=== PATIENT | female | born 1995 | race Caucasian/White ===

== ENCOUNTER → 2017-03-25 | Outpatient (CLI) | payer SELFPAY ==
[~2017-03-25] MED LIST: DEPO INJECTION
[2017-03-28 00:08] LABS: CHLAMYDIA TRACH RNA*** DETECTED (NOT DETECTED); GC (NEIS GONORRHOEAE)RNA** NOT DETECTED (NOT DETECTED)
== END | disposition home or self-care (01) ==
LOC: C.LABSPEC 13:45
PROVIDERS: ATTEND Physician Assistant
DX: Z30.430 Encounter for insertion of intrauterine contraceptive device (principal)

== ENCOUNTER → 2017-06-24 | Outpatient (CLI) | payer OTHER ==
[2017-06-25 14:06] LABS: CHLAMYDIA TRACH RNA*** NOT DETECTED (NOT DETECTED); GC (NEIS GONORRHOEAE)RNA** NOT DETECTED (NOT DETECTED)
== END | disposition home or self-care (01) ==
LOC: C.LABSPEC 11:21
PROVIDERS: ATTEND Physician Assistant
DX: A56.8 Sexually transmitted chlamydial infection of other sites (principal)

== ENCOUNTER 2017-08-15 20:07 | Emergency (ER) | payer OTHER ==
[~2017-08-15] VITALS: Ht 160 cm; Wt 68.2 kg
[2017-08-15 20:14] VITALS: TEMP 37; Ht 160 cm; Wt 68.2 kg
[2017-08-15] MEDS ORDERED: ACETAMINOPHEN 325 MG TAB PO STA (21:05)
--- NOTE | 2017-08-15 21:55 | DIAGNOSTIC IMAGING REPORT ---
CHEST 2 VIEWS ROUTINE HISTORY: cough eval for pna COMPARISON: Chest 06/24/2014. FINDINGS: The lungs are clear. Cardiac silhouette is normal in size. No pleural effusions. No pneumothorax. IMPRESSION: No acute process. Electronically signed by: Cy Fleming M.D. 08/15/2017 9:53 PM Dictated Date/Time: 08/15/2017 9:52 PM
[2017-08-15] MEDS ORDERED: BENZ100C84 PO (22:14)
[2017-08-15] MEDS ORDERED: BENZONATATE 100MG CAP PO ONE (22:15)
[2017-08-15 22:25] VITALS: BP 139/76; PULSE 109; O2SAT 98
[2017-08-15] MEDS ORDERED: IUD'IUD INT UTER (22:26)
[2017-08-15 23:02] LABS: INFLUENZA B ANTIGEN Neg for Influ B (NEG)
--- NOTE | 2017-08-16 00:06 | EMERGENCY ROOM VISIT NOTE ---
History Report prepared by Hal: Darcy Lin Under the Supervision of: Dr. Mateusz Mcnamara M.D. First contact with patient: 20:59 Chief Complaint: FLU LIKE SX Stated Complaint: FLU LIKE History of Present Illness The patient is a 22 year old female who presents to the Emergency Room with complaints of persistent flu symptoms starting last night. The patient reports a dry cough, headache, and body aches. She last took Tylenol at 1200 for her symptoms. She denies any congestion, vomiting, abdominal pain, or diarrhea. She did not have a flu shot this season. Her daughter recently had the flu. She denies any chance of . She notes she had hypertension after having her daughter. She sees cardiology once a year and they do not seem concerned about her hypertension. She denies any other medical problems. Source of History: patient Onset: last night Position: other (global) Quality: other (flu symptoms) Timing: other (persistent) Associated Symptoms: + headache, + cough, No chest pain, No vomiting, No abdominal pain, No diarrhea Note: Pt reports body aches. Pt denies congestion. Review of Systems See HPI for pertinent positives & negatives. A total of 10 systems reviewed and were otherwise negative. Past Medical & Surgical Medical Problems: (1) adolescent (2) Chest pain (3) Hypertension Nos (4) Sinusitis, acute (5) Vaginal delivery Surgical Problems: (1) S/P tonsillectomy and adenoidectomy Family History Diabetes mellitus Heart disease Hypertension Social History Smoking Status: Never Smoker Alcohol Use: none Drug Use: none Marital Status: single Housing Status: lives with family Occupation Status: unemployed Current/Historical Medications Scheduled Iud's (Paragard Intrauterine Rivet Flunky), 1 EA INT UTER UD Scheduled PRN Benzonatate (Tessalon Perles), 100 MG PO Q8 PRN for Cough Allergies Coded Allergies: CI Pigment Blue 63 (Verified Allergy, Unknown, SWELLING/HIVES, 04/21/15) Oseltamivir (Verified Allergy, Unknown, SWELLING/HIVES, 04/21/15) Physical Exam Vital Signs Date Time Temp Pulse Resp B/P (MAP) Pulse Ox O2 Delivery O2 Flow Rate FiO2 08/15/17 22:25 109 16 139/76 98 Room Air 08/15/17 20:14 37.0 108 20 136/72 98 Room Air Physical Exam Constitutional: Vital signs reviewed. Eyes: Pupils are equal round reactive to light. Conjunctiva are noninjected. ENT: Pharynx is clear without erythema or exudate. Mucous membranes are moist. Neck supple without meningeal signs. Respiratory: Clear to auscultation bilaterally. Breath sounds are equal bilaterally. Cardiovascular: Regular rate and rhythm. No rubs or gallops. GI: Soft, nondistended and nontender. Bowel sounds are present. Musculoskeletal: No peripheral edema. No lower extremity tenderness. Integumentary: No cyanosis. Neurological: The patient is awake and alert. No focal deficits. Psychiatric: Normal affect. Medical Decision & Procedures ER Provider Diagnostic Interpretation: X-ray results as stated below per interpretation by me and the radiologist: CHEST 2 VIEWS ROUTINE HISTORY: cough eval for pna COMPARISON: Chest 06/24/2014. FINDINGS: The lungs are clear. Cardiac silhouette is normal in size. No pleural effusions. No pneumothorax. IMPRESSION: No acute process. Electronically signed by: Cy Fleming M.D. 08/15/2017 9:53 PM Dictated Date/Time: 08/15/2017 9:52 PM Laboratory Results Test 08/15/17 21:05 08/15/17 22:15 Influenza Type A Antigen Neg for Influ A (NEG) Influenza Type B Antigen Neg for Influ B (NEG) Laboratory results as reviewed by me. Medications Administered Medications (Trade) Dose Ordered Sig/Dwayne Route Start Time Stop Time Status Last Admin Dose Admin Acetaminophen (Tylenol Tab) 650 mg NOW STAT PO 08/15/17 21:05 08/15/17 21:07 DC 08/15/17 21:24 650 MG Benzonatate (Tessalon Perles Cap) 100 mg NOW ONCE PO 08/15/17 22:15 08/15/17 22:16 DC 08/15/17 22:23 100 MG ED Course 2100: The patient was evaluated in room C2B. A complete history and physical exam was performed. 2105: Acetaminophen 650 mg PO. 2211: Upon reevaluation, the patient was resting comfortably. I discussed tonight's findings with her. She verbalized agreement of the treatment plan. She was discharged home. 2215: Benzonatate 100 mg PO. Medical Decision This is a 22-year-old female presents with flulike symptoms. Differential diagnosis includes influenza, bronchitis, pneumonia, viral syndrome. I did perform a limited focused review of portions of the patient's old chart on the electronic medical record. The patient has had no recent pertinent visits to this hospital. I did evaluate the patient as noted above. Urine presents to test was negative. The patient was treated with Tylenol. I did order and personally review the patient's chest x-ray as described above. There is no evidence of pneumonia. I did obtain a rapid flu test which was negative. I did discuss the test results with the patient. She was treated with Tessalon for her cough and discharged with a prescription for Tessalon Perles. She was advised follow up with her doctor. Medication Reconcilliation Current Medication List: was personally reviewed by me Blood Pressure Screening Patient's blood pressure: Elevated blood pressure Blood pressure disposition: Referred to PCP Impression Primary Impression: Influenza-like symptoms Scribe Attestation The scribe's documentation has been prepared under my direct and personally reviewed by me in its entirety. I confirm that the note above accurately reflects all work, treatment, procedures, and medical decision making performed by me. Departure Information Dispostion Home / Self-Care Prescriptions Benzonatate (Tessalon Perles) 100 Mg Cap 100 MG PO Q8 Y for Cough, #20 CAP Prov: Mateusz Mcnamara M.D. 08/15/17 Referrals Mariza Javed, C.R.N.P. (PCP) Forms HOME CARE DOCUMENTATION FORM, IMPORTANT VISIT INFORMATION Patient Instructions My [facility] Additional Instructions You have been examined and treated today on an emergency basis only. This is not a substitute for, or an effort to provide, complete comprehensive medical care. It is impossible to recognize and treat all injuries or illnesses in a single emergency department visit. It is therefore important that you follow up closely with your physician. Call as soon as possible for an appointment. Return for worsening symptoms or if you develop high fever, vomiting, shortness of breath or any other concerning symptoms.
== END 2017-08-15 22:29 | disposition home or self-care (01) ==
LOC: C.EDB 20:07 → C.EDC 22:29
DX: R05 Cough (principal); R51 Headache; I10 Essential (primary) hypertension; Z97.5 Presence of (intrauterine) contraceptive device; Z83.3 Family history of diabetes mellitus; Z82.49 Family history of ischemic heart disease and other diseases of the circulatory system

== ENCOUNTER → 2017-08-19 | Outpatient (CLI) | payer OTHER ==
[~2017-08-19] MED LIST changes: +BENZ100C84 PO; -DEPO INJECTION; +IUD'IUD INT UTER
== END | disposition home or self-care (01) ==
LOC: C.LABSPEC 12:55
PROVIDERS: ATTEND Nurse Practitioner
DX: J02.9 Acute pharyngitis, unspecified (principal)

== ENCOUNTER → 2017-12-09 | Outpatient (CLI) | payer OTHER | END | disposition home or self-care (01) | LOC: C.LAB1850 13:40 | PROVIDERS: ATTEND Nurse Practitioner | DX: A56.8 Sexually transmitted chlamydial infection of other sites (principal); R10.2 Pelvic and perineal pain ==

== ENCOUNTER 2018-02-27 21:47 | Emergency (ER) | payer OTHER ==
[~2018-02-27] VITALS: Ht 157.5 cm; Wt 68.2 kg
[~2018-02-27 21:47] MED LIST changes: -BENZ100C84 PO
[2018-02-27 21:54] VITALS: Ht 157.5 cm; Wt 68.2 kg
[2018-02-27] MEDS ORDERED: OXYCODONE/ACETAMINOPHEN 5-325 TAB PO STA (22:10)
[2018-02-27] MEDS ORDERED: IBUPROFEN 600 MG TAB PO STA (22:10)
[2018-02-27] MEDS ORDERED: OXYC-57 PO (22:13)
[2018-02-27] MEDS ORDERED: PERCOCET HOME PACK PO ONE (22:15)
[2018-02-27 22:38] VITALS: BP 136/84; PULSE 87; TEMP 36.8; O2SAT 98
--- NOTE | 2018-02-28 00:45 | EMERGENCY ROOM VISIT NOTE ---
History Report prepared by Anjelicaibkareen: Karina Schumacher Under the Supervision of: Dr. New Mckeon M.D. First contact with patient: 22:03 Chief Complaint: FINGER PAIN Stated Complaint: RIGHT MIDDLE FINGER History of Present Illness The patient is a 22 year old female who presents to the Emergency Room with complaints of worsening right finger pain that onset this morning. 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 She notes that he pain started in her finger, moved up into her hand, and is currently up to her wrist. She states that her pain is exacerbated with movement. She complains of numbness in her hand. Source of History: patient, custodial notes Onset: this morning Position: finger(s) (right) Timing: worsening Modifying Factors (Worsening): movement Associated Symptoms: + numbness Review of Systems See HPI for pertinent positives & negatives. A total of 10 systems reviewed and were otherwise negative. Past Medical & Surgical Medical Problems: (1) adolescent (2) Chest pain (3) Hypertension Nos (4) Sinusitis, acute (5) Vaginal delivery Surgical Problems: (1) S/P tonsillectomy and adenoidectomy Family History Diabetes mellitus Heart disease Hypertension Social History Smoking Status: Never Smoker Alcohol Use: none Drug Use: none Marital Status: single Housing Status: lives with family Occupation Status: unemployed Current/Historical Medications Scheduled Iud's (Paragard Intrauterine English Language Arts Teacher), 1 EA INT UTER UD Scheduled PRN Oxycodone/Acetaminophen 5MG/325MG (Percocet 5MG/325MG), 1-2 TAB PO Q4H PRN for Pain Allergies Coded Allergies: CI Pigment Blue 63 (Verified Allergy, Unknown, SWELLING/HIVES, 04/21/15) Oseltamivir (Verified Allergy, Unknown, SWELLING/HIVES, 04/21/15) Physical Exam Vital Signs Date Time Temp Pulse Resp B/P (MAP) Pulse Ox O2 Delivery O2 Flow Rate FiO2 02/27/18 22:38 36.8 87 18 136/84 98 02/27/18 21:54 36.8 87 18 136/84 98 Room Air Physical Exam GENERAL: Awake, alert, well-appearing, in no acute distress HENT: Normocephalic, atraumatic. Oropharynx unremarkable. EYES: Normal conjunctiva. Sclera non-icteric. NECK: Supple. No nuchal rigidity. FROM. No JVD. RESPIRATORY: Clear to auscultation. CARDIAC: Regular rate, normal rhythm. Extremities warm and well perfused. Pulses equal. ABDOMEN: Soft, non-distended. No tenderness to palpation. No rebound or guarding. No masses. RECTAL: Deferred. MUSCULOSKELETAL: Chest examination reveals no tenderness. The back is symmetrical on inspection without obvious abnormality. There is no CVA tenderness to palpation. No joint edema. UPPER EXTREMITIES: Positive Tinel and Phalen signs. LOWER EXTREMITIES: Calves are equal size bilaterally and non-tender. No edema. No discoloration. NEURO: Normal sensorium. No sensory or motor deficits noted. SKIN: No rash or jaundice noted. Medical Decision & Procedures Medications Administered Medications (Trade) Dose Ordered Sig/Dwayne Route Start Time Stop Time Status Last Admin Dose Admin Ibuprofen (Motrin Tab) 600 mg NOW STAT PO 02/27/18 22:10 02/27/18 22:12 DC 02/27/18 22:18 600 MG Oxycodone/ Acetaminophen (Percocet 5/ 325MG Home Pack) 1 homepack UD ONCE PO 02/27/18 22:15 02/27/18 22:16 DC 02/27/18 22:19 1 HOMEPACK Oxycodone/ Acetaminophen (Percocet 5-325mg Tab) 2 tab NOW STAT PO 02/27/18 22:10 02/27/18 22:12 DC 02/27/18 22:19 2 TAB Procedure This is a 22-year-old female who presents emergency department complaining of hand numbness after being at work. 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 The hand numbness and pain is made worse with both Tinel and Phalen's tests. Based on this physical exam finding I do believe that the patient is suffering from carpal tunnel syndrome. I strongly recommended anti-inflammatory such as ibuprofen as well as a cock-up splint. I also recommended that the patient follow-up with orthopedics. She was given Percocet for the pain. Patient was in agreement with the treatment plan. ED Course 2214: Past medical records reviewed. The patient was evaluated in room B11. A complete history and physical examination was performed. 2219: Upon reexamination the patient is resting comfortably. I discussed results and treatment plan with the patient. She verbalizes agreement and understanding. The patient is ready for discharge. Medical Decision Differential diagnosis: Etiologies carpal tunnel syndrome as well as others were entertained. Medication Reconcilliation Current Medication List: was personally reviewed by me Blood Pressure Screening Patient's blood pressure: Normal blood pressure Impression Primary Impression: Carpal tunnel syndrome Scribe Attestation The scribe's documentation has been prepared under my direction and personally reviewed by me in its entirety. I confirm that the note above accurately reflects all work, treatment, procedures, and medical decision making performed by me. Departure Information Dispostion Home / Self-Care Prescriptions Oxycodone/Acetaminophen 5MG/325MG (PERCOCET 5MG/325MG) Tab 1-2 TAB PO Q4H Y for Pain, #14 TAB Prov: New Mckeon MD 02/27/18 Referrals Mariza Javed C.R.N.P. (PCP) Forms HOME CARE DOCUMENTATION FORM, IMPORTANT VISIT INFORMATION, WORK / SCHOOL INSTRUCTIONS Patient Instructions My [facility] Additional Instructions Follow up with Dr Mason's office You received narcotic or benzodiazepene medication while in the emergency room today. This is an addictive medication that may cause drowziness as well as constipation. Do not drive, operate heavy machinery, or drink alcohol under the influence of this medication. Take 600 mg Ibuprofen every 6 hours Take Percocet for breakthrough pain You have been examined and treated today on an emergency basis only. This is not a substitute for, or an effort to provide, complete comprehensive medical care. It is impossible to recognize and treat all injuries or illnesses in a single emergency department visit. It is therefore important that you follow up closely with your PCP. Call as soon as possible for an appointment. Thank you for your time and consideration. I look forward to speaking with you again soon. Please don't hesitate to call us if you have any questions. Problem Qualifiers Primary Impression: Carpal tunnel syndrome Laterality: right Qualified Codes: G56.01 - Carpal tunnel syndrome, right upper limb
== END 2018-02-27 22:38 | disposition home or self-care (01) ==
LOC: C.EDB 21:49
DX: G56.01 Carpal tunnel syndrome, right upper limb (principal); Z97.5 Presence of (intrauterine) contraceptive device; Z91.02 Food additives allergy status; Z88.8 Allergy status to other drugs, medicaments and biological substances

== ENCOUNTER → 2018-03-03 | Outpatient (CLI) | payer OTHER ==
[~2018-03-03] MED LIST changes: +OXYC-57 PO
== END | disposition home or self-care (01) ==
LOC: C.RDSM 10:25
PROVIDERS: ATTEND Family Medicine Sports Medicine
DX: M25.532 Pain in left wrist (principal)

== ENCOUNTER 2018-03-08 22:59 | Emergency (ER) | payer OTHER ==
[~2018-03-08] VITALS: Ht 157.5 cm; Wt 68.2 kg
[2018-03-08 23:03] VITALS: Ht 157.5 cm; Wt 68.2 kg
[2018-03-08] MEDS ORDERED: KETOROLAC TROMETHAMINE 60 MG/2 ML VIAL IM STA (23:21)
--- NOTE | 2018-03-08 23:41 | EMERGENCY ROOM VISIT NOTE ---
History Report prepared by Hal: John Seaman Under the Supervision of: Dr. Janene Carrasquillo D.O. First contact with patient: 23:10 Chief Complaint: WRIST PAIN Stated Complaint: RIGHT WRIST PAIN History of Present Illness The patient is a 22 year old female who presents to the Emergency Room with complaints of constant right wrist pain beginning three weeks ago. The patient states that she came to the emergency department two weeks ago for right wrist pain and was diagnosed with carpel tunnel. She notes that she went to an orthopedist and was told that she did not have carpel tunnel. She reports that she was then referred to physical therapy. The patient states that she started going to physical therapy two days ago. She notes that her physical therapist thought that she had tendonitis instead of carpel tunnel. 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 The patient states that she then puts the brace back on when her pain worsens. She also complains of right hand numbness/ pain, finger stiffness, and occasional forearm pain. She rates her pain as an 8/ 10. She denies any right elbow pain, right shoulder pain, and chance of . She notes that she has been alternating Tylenol and ibuprofen for the last few days with no relief of her symptoms. She reports that she last took Tylenol at 1800 today. Source of History: patient Onset: three weeks ago Position: other (right wrist) Symptom Intensity: 8/10 Timing: constant Note: The patient also complains of right hand numbness/pain, finger stiffness, and occasional forearm pain. She denies any right elbow pain and right shoulder pain. Review of Systems See HPI for pertinent positives & negatives. A total of 6 systems reviewed and were otherwise negative. Past Medical & Surgical Medical Problems: (1) adolescent (2) Chest pain (3) Hypertension Nos (4) Sinusitis, acute (5) Vaginal delivery Surgical Problems: (1) H/O wisdom tooth extraction (2) S/P tonsillectomy and adenoidectomy Family History Diabetes mellitus Heart disease Hypertension Social History Smoking Status: Never Smoker Alcohol Use: none Drug Use: none Marital Status: single Housing Status: lives with family Occupation Status: employed Current/Historical Medications Scheduled Iud's (Paragard Intrauterine Helicopter Utility Aircrewman), 1 EA INT UTER UD Scheduled PRN Oxycodone/Acetaminophen 5MG/325MG (Percocet 5MG/325MG), 1-2 TAB PO Q4H PRN for Pain Allergies Coded Allergies: CI Pigment Blue 63 (Verified Allergy, Unknown, SWELLING/HIVES, 04/21/15) Oseltamivir (Verified Allergy, Unknown, SWELLING/HIVES, 04/21/15) Physical Exam Vital Signs Date Time Temp Pulse Resp B/P (MAP) Pulse Ox O2 Delivery O2 Flow Rate FiO2 03/08/18 23:45 82 20 127/84 99 03/08/18 23:03 36.5 85 18 133/90 98 Room Air Physical Exam RIGHT WRIST: Moderate pain with pronation and supination that radiates into ventral forearm, pain with palpation over ventral and dorsal aspect of the hand , pain with flexion and extension of wrist, no obvious edema, good radial pulses , good capillary refill in the fingers. Medical Decision & Procedures Medications Administered Medications (Trade) Dose Ordered Sig/Dwayne Route Start Time Stop Time Status Last Admin Dose Admin Ketorolac Tromethamine (Toradol Inj) 60 mg NOW STAT IM 03/08/18 23:21 03/08/18 23:22 DC 03/08/18 23:45 60 MG Procedure Medications Administered: Toradol Inj 60mg IM ED Course 2315: Past medical records reviewed. The patient was evaluated in room C10. A focused history and physical exam was performed. 2321: Toradol Inj 60mg IM 2338: The patient will be discharged home with a prescription for prednisone for the next 4 days. I have encouraged her to follow-up with her occupational medicine doctor from the [facility]. Medical Decision The patient is a 22 year old female who presents to the Emergency Room with complaints of constant right wrist pain beginning three weeks ago. Differential diagnoses include: tendonitis, carpel tunnel, wrist sprain, wrist strain, and septic joint. The patient's physical exam seems consistent with tendinitis of the wrist. I encouraged the patient to continue to use her wrist brace and avoid strenuous activity with that right upper extremity. She was given a prescription for a 4 day burst of prednisone. She can follow-up with occupational medicine as described above. They can decide on her work restrictions and pursuing physical therapy. Medication Reconcilliation Current Medication List: was personally reviewed by me Blood Pressure Screening Patient's blood pressure: Elevated blood pressure Blood pressure disposition: Elevated BP felt to be situational Impression Primary Impression: Tendonitis of wrist, right Scribe Attestation The scribe's documentation has been prepared under my direction and personally reviewed by me in its entirety. I confirm that the note above accurately reflects all work, treatment, procedures, and medical decision making performed by me. Departure Information Dispostion Home / Self-Care Referrals No Doctor, Assigned (PCP) Forms HOME CARE DOCUMENTATION FORM, IMPORTANT VISIT INFORMATION, WORK / SCHOOL INSTRUCTIONS Patient Instructions My [facility] Additional Instructions Rest the right wrist. You may continue to apply ice Motrin - 600mg every 6 hours with food for pain Prednisone - daily for next 4 days Wear brace while awake and using hands Follow up with employee health through [facility] to determine restrictions at work
[2018-03-08 23:45] VITALS: BP 127/84; PULSE 82; O2SAT 99
== END 2018-03-08 23:47 | disposition home or self-care (01) ==
LOC: C.EDB 23:01 → C.EDC 23:47
DX: M77.8 Other enthesopathies, not elsewhere classified (principal); I10 Essential (primary) hypertension; Z97.5 Presence of (intrauterine) contraceptive device

== ENCOUNTER 2025-04-03 18:55 | Inpatient (IN) ==
[2025-04-03] MEDS ORDERED: CALCIUM CARBONATE 500 MG CHEWABLE TAB PO PRN ×2 (19:27→20:19)
[2025-04-03] MEDS: FAMOTIDINE 20 MG TAB PO SCH (19:56)
[2025-04-03] MEDS ORDERED: LIDOCAINE 1% LOCAL 20 ML VIAL INFIL PRN (20:19)
[2025-04-03] MEDS ORDERED: ACETAMINOPHEN 500 MG TAB PO PRN (20:19)
[2025-04-03] MEDS ORDERED: OXYTOCIN 30 UNITS/NSS 30 UNITS/500 ML BAG IV PRN (20:19)
--- NOTE | 2025-04-03 21:10 | History & Physical Report ---
Date of Service April 03, 2025 Assessment & Plan (1) Severe pre-eclampsia in third trimester: Plan: Yanet is a 29-year-old -1-0-1 at 37 weeks 0 days gestational age presents with severe preeclampsia/severe gestational hypertension. Has severe range blood pressures as noted per chart. Discussed diagnosis and recommendation for magnesium. Discussed blood pressure management and ordered labetalol 20 mg IV as a single dose. Will continue to monitor and treat appropriately. Discussed induction of labor and cervix is favorable. Will start with oxytocin per regular protocol. 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 Denying any preeclampsia symptoms. Denying any contractions, leakage of fluid or vaginal bleeding. Allergies Allergy/AdvReac Type Severity Reaction Status Date / Time oseltamivir Allergy Unknown SWELLING/HI Verified 04/01/25 13:49 VES Home Medications Medication Instructions Recorded Confirmed Type ondansetron 4 mg disintegrating 4 mg PO Q6H PRN nausea and 10/16/24 04/01/25 Rx tablet vomiting #12 tabs vit no.95-ferrous 1 tab PO DAILY 10/16/24 04/01/25 History fumarate 28 mg-folic acid 800 mcg tablet () Patient History Medical History Osteochondritis dissecans Chronic mixed headache syndrome Surgical History History of myringotomy History of knee surgery Rt knee scope x 3 History of tonsillectomy and adenoidectomy Status post wisdom tooth extraction Family History Grandmother Diabetes Grandmother COPD (chronic obstructive pulmonary disease) Migraine headache Grandmother (Maternal) Hypertension Heart disease Other No family history of adverse response to anesthesia No family history of bleeding disorder Denies family history of Ovarian cancer Prostate cancer Myocardial infarction Breast cancer Colorectal cancer Uterine cancer Social History Smoking Status: Never smoker Second Hand Exposure: No; Do You Dip or Chew Tobacco: No; Tobacco Cessation Education Requested by Patient: No Hx Alcohol Use: Yes Alcohol Intake Frequency: Monthly or Less Hx Substance Use: No Preferred Language: Latvian Communication Ability: Effective Hearing Ability: Normal Fitness/Wellness Director Required: No Beliefs That Will Affect Care: None marital status: marital status details: Rosas [phone] Current Living Situation: Spouse and Family Current Living Situation Comment: , daughter and step kids current occupational status: employed current occupation: [employer] Other Information That Helps Us Care for You: No Feels Safe at Home: Yes Safety Concerns: Feels Safe At This Time Childhood Exposure to Second-Hand Smoke: Yes Dental Care, Regularly: Yes Seatbelt Use: always Assistive Devices: None Physical Exam Genitourinary: normal external appearance OB Exam Abdomen: + vertex Manual OB Exam: + cervical dilation (1.5), + cervical effacement 70% and + station -2 OB Exam Monitor Tracing: + external FHT monitor used, + external uterine monitor used, + category I and + normal FHT variability Results & Data Vital Signs (Past 12 Hours) Vital Signs Temp Pulse Resp BP 04/03/25 20:38 93 H 172/92 H 04/03/25 20:19 96 H 166/98 H 04/03/25 20:09 90 164/92 H 04/03/25 19:54 85 163/92 H 04/03/25 19:36 88 161/103 H 04/03/25 19:35 86 158/95 H 04/03/25 19:33 36.7 C 18 04/03/25 19:15 36.7 C 82 18 142/92 H Code Status & VTE Plan VTE Prophylaxis Plan VTE Prophylaxis will be ordered: No Coding Level of Care Code None Diagnoses Severe pre-eclampsia in third trimester O14.13 GBS carrier Z22.330 Supervision of normal intrauterine in multigravida in third trimester Z34.83 Trimester: third trimester History of premature rupture of membranes (PROM) in previous , currently in third trimester O09.293 Trimester: third trimester (3) Supervision of normal intrauterine in multigravida Trimester: third trimester Qualified Code(s): Z34.83 - Encounter for supervision of other normal , third trimester (4) Prior PROM, antepartum Trimester: third trimester Qualified Code(s): O09.293 - Supervision of with other poor reproductive or obstetric history, third trimester
[2025-04-03 21:21] LABS: Hematocrit (blood only) 42.7 % (37.0-47.0); Hemoglobin 14.3 g/dl (12.0-16.0); Mean Corpuscular Hemoglobin 28.5 pg (25.0-34.0); Mean Corpuscular Volume 85.2 fL (80.0-100.0); Platelet Count 239 K/uL (130-400); RDW Standard Deviation 39.0 fL (36.4-46.3); Red Blood Count 5.01 M/uL (4.20-5.40); White Blood Count 12.22 K/ul (4.8-10.8)
[2025-04-03] MEDS: LABETALOL HCL IV 5 MG/ML 20ML IV STA (21:25)
[2025-04-03] MEDS: MAG SULFATE 4GM BOLUS FROM BAG IV ONE (21:30)
[2025-04-03] MEDS: MAGNESIUM SULFATE / WTR 40 GM/1,000 ML BAG IV SCH (21:30)
[2025-04-03] MEDS: LACTATED RINGER'S 1,000 ML IV PRN (21:31)
[2025-04-03 21:35] LABS: Alanine Aminotransferase 16.0 U/L (7-52); Creatinine Clr Calc Pharmacy 133.9 ml/min
[2025-04-03] MEDS: OXYTOCIN 30 UNITS/NSS 30 UNITS/500 ML BAG IV PRN (21:36)
[2025-04-03] MEDS: PENICILLIN GK 6 MU in DEXTROSE 5% 250 ML IV ONE (21:37)
[2025-04-03 21:46] LABS: Total Protein Urine Random < 4.0 mg/dl (0-11.9)
[2025-04-04] MEDS: PENICILLIN GK 3 MU in DEXTROSE 5% 100 ML IV PRN (01:55)
--- NOTE | 2025-04-04 07:36 | Delivery Summary ---
Vaginal Delivery Summary Date of Service April 04, 2025 Vaginal Delivery Summary Patient delivered precipitously with involuntary pushing prior to being notified. Upon presentation was delivered and noted to be vigorous on maternal abdomen. Had been approximately 1 minute and the cord was doubly clamped and cut and remained on maternal abdomen. Cord blood obtained and attention turned to delivery of the placenta which delivered intact three- vessel cord gentle cord traction. Inspection of perineum, vagina and cervix there is noted to be no lacerations. Sponge and instrument counts correct at the completion of the case. Both mother and stable immediate postdelivery timeframe. No complications noted and blood loss per QBL. Continue with mag [facility] Vaginal Delivery Charge Delivery Type Details:
[2025-04-04] MEDS ORDERED: HYDROCORTISONE ACETATE 25 MG SUPP PR PRN (19:00)
[2025-04-04] MEDS ORDERED: BENZOCAINE 20% SPRY 85 APPLN/85 GM CAN EXT PRN (19:00)
[2025-04-04] MEDS ORDERED: OXYTOCIN 30 UNITS/NSS 30 UNITS/500 ML BAG IV PRN (19:00)
[2025-04-04] MEDS: DOCUSATE SODIUM 100 MG CAP PO SCH (20:45)
[2025-04-04] MEDS: IBUPROFEN 600 MG TAB PO PRN (21:03)
[2025-04-04] MEDS: ACETAMINOPHEN 325 MG TAB PO PRN (21:29)
--- NOTE | 2025-04-05 05:58 | Obstetrical Progress Note ---
Date of Service April 05, 2025 Assessment & Plan (1) examination following vaginal delivery: (2) Severe pre-eclampsia in third trimester: (3) Prior PROM, antepartum: Plan 29 y/o post- day 1 s/p whose was complicated by severe pre-eclampsia Feels well today. Vital signs stable Continue post- care Encourage ambulation and Pain controlled with ibuprofen Hgb stable Discharge home today, follow up with Dr. Ch in 6 weeks. Admission and Anticipated Discharge Date Admission Date: April 03, 2025 Supervising Physician Co-Signing Physician Notes Resident Physician Supervision Note: I interviewed and examined the patient. Discussed with Dr. Rahman and agree with findings and plan as documented in the note. Any exceptions or clarifications are listed here: [ ] Documented By: Rebecca Payne MD, FACOG Subjective 29 y/o post- day 1 s/p whose was complicated by severe pre-eclampsia Ambulation: ambulating normally Voiding: no voiding problems Passing Gas:: Yes Diet Tolerance:: regular diet Lochia:: reporting heavy "gushes" when standing/moving abdominal muscles Feeding Type:: bottle feeding Current Pain Level: minimal Resting comfortably this AM in NAD. Denies JIN, CP, SOB, N/V/D, LE pain/swelling. Physical Exam Physical Exam: General: patient resting comfortably, NAD, non-toxic in appearance, AA&O x 4, answers questions appropriately. Skin: warm, dry, intact HEENT: NC/AT, anicteric sclera, conjunctiva without injection, moist mucus membranes. Heart: +S1/S2, regular, no m/r/g Lungs: equal air entry bilaterally, no rales/rhonchi/wheezes Abd: +BS, soft, NT/ND, uterine fundus firm below umbilicus Ext: warm, no clubbing/cyanosis or edema, Mayur's neg. Neuro: nonfocal, patient AA&O x 4, speech intact, no facial droop, moving all extremities on command. Results & Data Vital Signs (Past 12 Hours) Vital Signs Temp Pulse Pulse Resp BP BP Pulse Ox 04/05/25 04:00 36.6 C 79 16 109/73 98 04/05/25 00:15 36.4 C L 78 16 112/73 98 04/04/25 20:50 36.4 C L 84 18 131/92 97 04/04/25 19:05 36.6 C 16 04/04/25 19:00 16 04/04/25 19:00 04/04/25 19:00 103 H 136/85 04/04/25 18:57 98 H 97 04/04/25 18:52 104 H 97 04/04/25 18:47 95 H 96 04/04/25 18:42 103 H 97 04/04/25 18:37 99 H 98 04/04/25 18:32 100 H 97 04/04/25 18:27 104 H 97 04/04/25 18:22 101 H 97 04/04/25 18:17 100 H 98 04/04/25 18:12 101 H 98 04/04/25 18:07 99 H 134/85 97 04/04/25 18:02 107 H 98 04/04/25 17:59 20 04/04/25 17:57 99 H 98 O2 Del Method 04/05/25 04:00 Room Air 04/05/25 00:15 Room Air 04/04/25 20:50 Room Air 04/04/25 19:05 04/04/25 19:00 04/04/25 19:00 Room Air 04/04/25 19:00 04/04/25 18:57 04/04/25 18:52 04/04/25 18:47 04/04/25 18:42 04/04/25 18:37 04/04/25 18:32 04/04/25 18:27 04/04/25 18:22 04/04/25 18:17 04/04/25 18:12 04/04/25 18:07 04/04/25 18:02 04/04/25 17:59 04/04/25 17:57 (3) Prior PROM, antepartum Trimester: third trimester Qualified Code(s): O09.293 - Supervision of with other poor reproductive or obstetric history, third trimester
[2025-04-05 06:19] LABS: Hematocrit (blood only) 38.1 % (37.0-47.0); Hemoglobin 13.0 g/dl (12.0-16.0); Mean Corpuscular Hemoglobin 29.7 pg (25.0-34.0); Mean Corpuscular Volume 87.0 fL (80.0-100.0); Platelet Count 217 K/uL (130-400); RDW Standard Deviation 41.1 fL (36.4-46.3); Red Blood Count 4.38 M/uL (4.20-5.40); White Blood Count 9.59 K/ul (4.8-10.8)
[2025-04-05 08:31] VITALS: RESP 18
[2025-04-05] MEDS: DIPHTHER/TETAN/PERTUS Vaccine (Tdap, Adol/Adult) 0.5mL IM ONE (08:41)
[2025-04-05] MEDS: PRENATAL VITAMIN 1 TAB PO SCH (08:45)
--- NOTE | 2025-04-05 09:35 | Progress Note ---
Date of Service April 05, 2025 Assessment & Plan Admission and Anticipated Discharge Date Admission Date: April 03, 2025 Review of Systems Constitutional: as per Subjective / HPI, + weight loss and + insomnia Eyes: + decreased night vision Results & Data Vital Signs (Past 12 Hours) Vital Signs Temp Pulse Resp BP Pulse Ox O2 Del Method 04/05/25 07:30 36.3 C L 84 18 134/84 98 Room Air 04/05/25 04:00 36.6 C 79 16 109/73 98 Room Air 04/05/25 00:15 36.4 C L 78 16 112/73 98 Room Air PG Care Time/CCT Total # of Minutes Spent Total Time Spent with Patient: Total time spent is greater than 50% in coordination of care (as documented) at patient's floor/unit and/or counseling patient: Coding
[2025-04-05 10:12] VITALS: TEMP 98.1; O2SAT 97
[2025-04-05 11:56] VITALS: BP 134/84; PULSE 84
== END 2025-04-05 12:38 | disposition home or self-care (01) | DRG 806 ==
LOC: OPB 18:55 → 4S1 18:57 → 4E2 04-04 19:52